=== PATIENT | male | born 1930 | race Caucasian/White ===

== ENCOUNTER 2017-04-10 23:01 | Inpatient (IN) | payer MEDICARE, OTHER ==
[~2017-04-10] VITALS: Ht 182.9 cm; Wt 81.8 kg
[2017-04-11 00:10] LABS: BASOPHILS % (AUTO) 0 % (0-1); EOSINOPHILS # (AUTO) 0.1 X10'3 (0-0.9); EOSINOPHILS % (AUTO) 0.7 % (0-6); HEMOGLOBIN 11.2 g/dl (14.0-17.9); LYMPHOCYTES # (AUTO) 0.7 X10'3 (1.1-4.8); LYMPHOCYTES % (AUTO) 3.5 % (21-51); MEAN CORPUSCULAR VOLUME 94.1 FL (78-98); MEAN PLATELET VOLUME 8.1 FL (7.4-10.4); MONOCYTES # (AUTO) 1.5 X10'3 (0-0.9); MONOCYTES % (AUTO) 7.3 % (2-12); NEUTROPHILS # (AUTO) 18.2 X10'3 (1.8-7.7); NEUTROPHILS % (AUTO) 88.5 % (42-75); PLATELET COUNT 327 X10'3 (140-440); RED BLOOD COUNT 3.51 X10'6 (4.70-6.10); WHITE BLOOD COUNT 20.5 X10'3 (4.5-11.0)
[2017-04-11 00:29] LABS: ALANINE AMINOTRANSFERASE 40 U/L (12-78); ALBUMIN 2.5 G/DL (3.4-5.0); ALBUMIN/GLOBULIN RATIO 0.6 (1.1-1.5); ALKALINE PHOSPHATASE 86 IU/L (46-116); ANION GAP 13 (8-16); ASPARTATE AMINO TRANSFERASE 30 U/L (10-37); BILIRUBIN,TOTAL 0.6 MG/DL (0.1-1.0); BLOOD UREA NITROGEN 22 MG/DL (7-18); BUN/CREATININE RATIO 19.3 (5.4-32.0); CALCIUM 8.5 MG/DL (8.5-10.1); CHLORIDE 97 MMOL/L (99-107); CREATININE 1.14 MG/DL (0.60-1.10); GLUCOSE 256 MG/DL (70-104); POTASSIUM 4.3 MMOL/L (3.5-5.1); SODIUM 131 MMOL/L (135-145); TOTAL CARBON DIOXIDE 21.2 MMOL/L (24-32); TOTAL PROTEIN 6.5 G/DL (6.4-8.2); eGFR 61 ML/MIN
[2017-04-11 00:31] LABS: TROPONIN I 1.51 NG/ML (0.0-0.05)
[2017-04-11] MEDS ORDERED: aspirin 81mg tab.chew PO ONE (00:35)
[2017-04-11] MEDS ORDERED: azithromycin/NS 500mg/250ml 250 ML IV ONE (00:35)
[2017-04-11] MEDS ORDERED: cefTRIAXone 1g/NS 100ml IVPB 100 ML IV ONE (00:35)
[2017-04-11] MEDS: normal saline 1000ml 1,000 ML IV SCH ×3 (00:39→20:52)
[2017-04-11] MEDS ORDERED: ondansetron/PF 4mg/2ml inj IV PRN (00:40)
[2017-04-11] MEDS ORDERED: diphenhydrAMINE 50 mg/ml inj IV PRN (00:40)
[2017-04-11] MEDS ORDERED: mag hydrox/Alum hydrox/simeth 30ml oral suspension PO PRN (00:40)
[2017-04-11] MEDS ORDERED: HYDROmorphone inj. 0.5 MG/0.5 ML DISP.SYRIN IV PRN ×2 (00:40)
[2017-04-11] MEDS ORDERED: acetaminophen 325mg tablet PO PRN ×2 (00:40)
[2017-04-11] MEDS ORDERED: diphenhydrAMINE 25mg capsule PO PRN (00:40)
[2017-04-11] MEDS ORDERED: HYDROcodone/acetaminophen 5mg/325mg tablet PO PRN (00:40)
[2017-04-11] MEDS ORDERED: acetaminophen 650mg rectal suppository RC PRN (00:40)
[2017-04-11] MEDS ORDERED: morphine 2 MG/ML inj. syringe IV PRN ×2 (00:40)
[2017-04-11] MEDS ORDERED: magnesium hydroxide 30ml (MOM) UD suspension PO PRN (00:40)
[2017-04-11] MEDS ORDERED: bisacodyl 10mg suppository rectal RC PRN (00:40)
[2017-04-11] MEDS ORDERED: metoclopramide 5 mg/ml inj IV PRN (00:40)
[2017-04-11] MEDS ORDERED: HYDROcodone/acetaminophen 10/325mg tab PO PRN (00:40)
[2017-04-11 01:36] LABS: INR 1.1 INR; PARTIAL THROMBOPLASTIN TIME 31 SECONDS (22-32); PROTHROMBIN TIME 11.2 SECONDS (9.0-12.0)
[2017-04-11 01:49] LABS: MAGNESIUM 1.7 MG/DL (1.5-2.4)
[2017-04-11 02:01] LABS: TOTAL CELLS COUNTED 100
[2017-04-11 02:02] LABS: PLATELET ESTIMATE NORMAL
[2017-04-11 02:03] LABS: TOXIC GRANULATION 1+
[2017-04-11 07:09] LABS: CLARITY,URINE CLOUDY (Clear); COLOR,URINE YELLOW (Yellow); GLUCOSE, URINE NEGATIVE (Neg); KETONES,URINE 15 mg/dl (Neg); LEUKOCYTE ESTERASE ,URINE NEGATIVE (Neg); NITRITES, URINE NEGATIVE (Neg); OCCULT BLOOD,URINE NEGATIVE (Neg); PH,URINE 5.5 (4.8-8.0); PROTEIN,URINE 30 mg/dl (Neg); UROBILINOGEN,URINE 0.2 E.U/dL (0.2-1.0)
[2017-04-11 07:17] LABS: UA COLLECTION TYPE CLN CATCH MIDSTREAM
[2017-04-11 07:18] LABS: BACTERIA,URINE FEW /HPF (Neg); RBC,URINE 0-2 /HPF (0-2); SQUAMOUS EPITHELIAL CELL,UR FEW /LPF (FEW); WBC,URINE 0-4 /HPF (0-4)
[2017-04-11 07:19] LABS: AMORPHOUS URATES 1+
[2017-04-11] MEDS: pantoprazole 40mg Tablet.DR PO SCH (07:30)
[2017-04-11] MEDS: cefTRIAXone 1g/NS 100ml IVPB 100 ML IV SCH ×2 (08:35→19:27)
[2017-04-11] MEDS ORDERED: ATOR20TA66 PO (08:51)
[2017-04-11] MEDS ORDERED: TRAZ150T78 PO (08:51)
[2017-04-11] MEDS ORDERED: METF500T PO (08:51)
[2017-04-11] MEDS ORDERED: GLIM4TAB79 PO (08:51)
[2017-04-11] MEDS ORDERED: LISI-600 PO (08:51)
[2017-04-11] MEDS ORDERED: FLO0.4C PO (08:51)
[2017-04-11 11:30] VITALS: BP_SYST 102; BP_SYST 138; BP_DIAS 61; BP_DIAS 97
[2017-04-11] MEDS: metoprolol tartrate 25mg tablet PO SCH ×2 (12:31→19:27)
[2017-04-11] MEDS: atorvastatin 20mg tablet PO SCH (12:31)
[2017-04-11] MEDS: enoxaparin 80mg/0.8ml syringe SUBCUT SCH ×2 (12:32→19:27)
[2017-04-11 12:56] LABS: CHOL/HDL RATIO 1.9 (0.00-4.99); CHOLESTEROL 58 MG/DL (0-200); HDL CHOLESTEROL 30 MG/DL (35-60); LDL CHOLESTEROL 26 MG/DL (50-100)
[2017-04-11 12:57] LABS: TRIGLYCERIDES 50 MG/DL (20-135)
[2017-04-11 15:00] VITALS: BP 103/61
[2017-04-11] MEDS: lactobacillus rhamnosus 10,000 MMU CELLS/CAPSULE PO SCH (17:05)
[2017-04-11 18:00] VITALS: BP 106/61
[2017-04-11] MEDS ORDERED: regadenoson 0.4mg/5ml syringe IV PRN (18:10)
[2017-04-11] MEDS ORDERED: MESSAGE TO PHARMACY PO ONE (18:10)
[2017-04-11] MEDS ORDERED: insulin Lispro (HumaLOG) vial - multi-dose SQ SCH (18:10)
[2017-04-11] MEDS ORDERED: dextrose 50%-water 50ml dispensing syringe IV PRN ×2 (18:10)
[2017-04-11] MEDS ORDERED: dextrose ORAL solution 15 GM/59 ML bottle PO PRN ×2 (18:10)
[2017-04-11] MEDS ORDERED: glucagon, human recombinant 1mg kit SUBCUT PRN (18:10)
[2017-04-11] MEDS: traZODone 150mg tablet PO SCH (19:27)
[2017-04-11 19:47] LABS: HEMOGLOBIN A1C 7.9 % (4.5-6.2)
[2017-04-11] MEDS: azithromycin 250mg tablet PO SCH (20:52)
[2017-04-11] MEDS: tamsulosin 0.4mg capsule PO SCH (20:52)
[2017-04-11] MEDS: insulin glargine (Lantus) pen - multi-dose SQ SCH (20:54)
[2017-04-11] MEDS ORDERED: insulin glargine (Lantus) pen - multi-dose SQ ONE (21:50)
[2017-04-11 21:56] VITALS: BP 103/65
[2017-04-11] MEDS: temazepam 15mg capsule PO PRN ×2 (22:00→22:59)
[2017-04-12] VITALS (14 sets, daily range): BP systolic 100–126; BP diastolic 46–70
[2017-04-12] MEDS: normal saline 1000ml 1,000 ML IV SCH (04:23)
[2017-04-12 06:16] LABS: BASOPHILS % (AUTO) 0.3 % (0-1); EOSINOPHILS # (AUTO) 0.3 X10'3 (0-0.9); EOSINOPHILS % (AUTO) 2.6 % (0-6); HEMATOCRIT 32.6 % (42.0-52.0); HEMOGLOBIN 11.2 g/dl (14.0-17.9); LYMPHOCYTES # (AUTO) 1.7 X10'3 (1.1-4.8); LYMPHOCYTES % (AUTO) 13.4 % (21-51); MEAN CORPUSCULAR HEMOGLOBIN 32.1 PG (27.0-31.0); MEAN CORPUSCULAR HGB CONC 34.5 % (33.0-36.5); MEAN CORPUSCULAR VOLUME 92.9 FL (78-98); MEAN PLATELET VOLUME 8.7 FL (7.4-10.4); MONOCYTES # (AUTO) 1.3 X10'3 (0-0.9); MONOCYTES % (AUTO) 10.2 % (2-12); NEUTROPHILS # (AUTO) 9.3 X10'3 (1.8-7.7); NEUTROPHILS % (AUTO) 73.5 % (42-75); PLATELET COUNT 283 X10'3 (140-440); RED BLOOD COUNT 3.51 X10'6 (4.70-6.10); RED CELL DISTRIBUTION WIDTH 13.1 % (11.5-14.5); WHITE BLOOD COUNT 12.6 X10'3 (4.5-11.0)
[2017-04-12 07:00] LABS: ALANINE AMINOTRANSFERASE 44 U/L (12-78); ALBUMIN 2.3 G/DL (3.4-5.0); ALBUMIN/GLOBULIN RATIO 0.6 (1.1-1.5); ALKALINE PHOSPHATASE 75 IU/L (46-116); ANION GAP 14 (8-16); ASPARTATE AMINO TRANSFERASE 30 U/L (10-37); BILIRUBIN,TOTAL 0.3 MG/DL (0.1-1.0); BLOOD UREA NITROGEN 12 MG/DL (7-18); BUN/CREATININE RATIO 13.5 (5.4-32.0); CALCIUM 8.3 MG/DL (8.5-10.1); CHLORIDE 104 MMOL/L (99-107); CREATININE 0.89 MG/DL (0.60-1.10); GLUCOSE 88 MG/DL (70-104); SODIUM 139 MMOL/L (135-145); TOTAL CARBON DIOXIDE 21.5 MMOL/L (24-32); TOTAL PROTEIN 6.2 G/DL (6.4-8.2); eGFR 81 ML/MIN
[2017-04-12] MEDS ORDERED: metoprolol tartrate 1mg/ml inj IV PRN (07:00)
[2017-04-12] MEDS ORDERED: nitroGLYCERIN 0.4mg SUBLingual tab SL PRN (07:00)
[2017-04-12] MEDS ORDERED: aminophylline 250mg/10ml inj. IV PRN (07:00)
[2017-04-12] MEDS: cefTRIAXone 1g/NS 100ml IVPB 100 ML IV SCH ×2 (08:13→19:47)
[2017-04-12] MEDS: pantoprazole 40mg Tablet.DR PO SCH (08:13)
[2017-04-12] MEDS: lactobacillus rhamnosus 10,000 MMU CELLS/CAPSULE PO SCH ×2 (08:13→17:51)
[2017-04-12] MEDS: atorvastatin 20mg tablet PO SCH (08:13)
[2017-04-12] MEDS: aspirin 81mg tab.chew PO SCH (08:13)
[2017-04-12] MEDS: enoxaparin 80mg/0.8ml syringe SUBCUT SCH ×2 (08:14→19:52)
[2017-04-12] MEDS ORDERED: ipratropium/albuterol 3ml nebule NEB PRN (09:05)
[2017-04-12] MEDS ORDERED: aminophylline inj. 0 ML IV ONE (09:37)
[2017-04-12] MEDS ORDERED: regadenoson 0.4mg/5ml syringe IV ONE (09:37)
[2017-04-12] MEDS ORDERED: TETanus/Pertussis (Acell)/Diphther VAC/PF (Tdap-Adult) 0.5ml syringe IMVAC ONE (12:45)
[2017-04-12] MEDS: lisinopril 10 MG tablet PO SCH (13:04)
[2017-04-12] MEDS: metoprolol tartrate 25mg tablet PO SCH ×2 (13:04→19:50)
[2017-04-12] MEDS: traZODone 150mg tablet PO SCH (19:51)
[2017-04-12] MEDS: azithromycin 250mg tablet PO SCH (20:11)
[2017-04-12] MEDS: tamsulosin 0.4mg capsule PO SCH (20:11)
[2017-04-12] MEDS: temazepam 15mg capsule PO PRN (20:11)
[2017-04-12] MEDS: insulin glargine (Lantus) pen - multi-dose SQ SCH (20:29)
[2017-04-13] MEDS: normal saline 1000ml 1,000 ML IV SCH ×2 (00:16→04:55)
[2017-04-13 02:00] VITALS: BP 131/58
[2017-04-13 06:00] VITALS: BP 140/73
[2017-04-13 06:29] LABS: BASOPHILS # (AUTO) 0.1 X10'3 (0-0.2); BASOPHILS % (AUTO) 0.8 % (0-1); EOSINOPHILS # (AUTO) 0.3 X10'3 (0-0.9); EOSINOPHILS % (AUTO) 3.2 % (0-6); HEMOGLOBIN 11.4 g/dl (14.0-17.9); LYMPHOCYTES # (AUTO) 1.4 X10'3 (1.1-4.8); LYMPHOCYTES % (AUTO) 13.9 % (21-51); MEAN CORPUSCULAR HEMOGLOBIN 32.3 PG (27.0-31.0); MEAN CORPUSCULAR HGB CONC 34.7 % (33.0-36.5); MEAN CORPUSCULAR VOLUME 93.2 FL (78-98); MEAN PLATELET VOLUME 8.4 FL (7.4-10.4); MONOCYTES # (AUTO) 0.8 X10'3 (0-0.9); MONOCYTES % (AUTO) 7.9 % (2-12); NEUTROPHILS # (AUTO) 7.7 X10'3 (1.8-7.7); NEUTROPHILS % (AUTO) 74.2 % (42-75); PLATELET COUNT 330 X10'3 (140-440); RED BLOOD COUNT 3.54 X10'6 (4.70-6.10); RED CELL DISTRIBUTION WIDTH 13.4 % (11.5-14.5); WHITE BLOOD COUNT 10.4 X10'3 (4.5-11.0)
[2017-04-13 07:10] LABS: ALANINE AMINOTRANSFERASE 47 U/L (12-78); ALBUMIN 2.2 G/DL (3.4-5.0); ALBUMIN/GLOBULIN RATIO 0.6 (1.1-1.5); ALKALINE PHOSPHATASE 78 IU/L (46-116); ANION GAP 11 (8-16); ASPARTATE AMINO TRANSFERASE 29 U/L (10-37); BILIRUBIN,TOTAL 0.3 MG/DL (0.1-1.0); BLOOD UREA NITROGEN 8 MG/DL (7-18); CALCIUM 8.5 MG/DL (8.5-10.1); CHLORIDE 104 MMOL/L (99-107); GLUCOSE 113 MG/DL (70-104); MAGNESIUM 1.7 MG/DL (1.5-2.4); PHOSPHORUS 3.3 MG/DL (2.3-4.5); POTASSIUM 3.8 MMOL/L (3.5-5.1); SODIUM 139 MMOL/L (135-145); TOTAL CARBON DIOXIDE 24.4 MMOL/L (24-32); eGFR > 90 ML/MIN
[2017-04-13] MEDS: aspirin 81mg tab.chew PO SCH (08:43)
[2017-04-13] MEDS: cefTRIAXone 1g/NS 100ml IVPB 100 ML IV SCH (08:43)
[2017-04-13] MEDS: pantoprazole 40mg Tablet.DR PO SCH (08:43)
[2017-04-13] MEDS: atorvastatin 20mg tablet PO SCH (08:43)
[2017-04-13] MEDS: metoprolol tartrate 25mg tablet PO SCH (08:43)
[2017-04-13] MEDS: lisinopril 10 MG tablet PO SCH (08:43)
[2017-04-13] MEDS: enoxaparin 80mg/0.8ml syringe SUBCUT SCH (08:44)
[2017-04-13] MEDS: lactobacillus rhamnosus 10,000 MMU CELLS/CAPSULE PO SCH (08:44)
[2017-04-13] MEDS ORDERED: LEVO500T2 PO (10:09)
[2017-04-13 11:00] VITALS: BP 139/71
== END 2017-04-13 12:10 | disposition home or self-care (01) | DRG 280 ==
LOC: ER 23:02 → ED HOLD 04-11 00:39 → PCU 3S 04-11 11:27
PROVIDERS: ADMIT Family Medicine; ATTEND Internal Medicine
PROC: 4A02XM4 Measurement of Cardiac Total Activity, External Approach (ICD-10-PCS; principal; 2017-04-12)
PROC: 3E073KZ Introduction of Other Diagnostic Substance into Coronary Artery, Percutaneous Approach (ICD-10-PCS; 2017-04-12)
DX: I21.4 Non-ST elevation (NSTEMI) myocardial infarction (principal); J18.1 Lobar pneumonia, unspecified organism; E11.42 Type 2 diabetes mellitus with diabetic polyneuropathy; E11.65 Type 2 diabetes mellitus with hyperglycemia; E87.1 Hypo-osmolality and hyponatremia; W06.XXXA Fall from bed, initial encounter; E78.00 Pure hypercholesterolemia, unspecified; E78.5 Hyperlipidemia, unspecified; S80.219A Abrasion, unspecified knee, initial encounter; I10 Essential (primary) hypertension; J20.9 Acute bronchitis, unspecified; S50.319A Abrasion of unspecified elbow, initial encounter; Z60.2 Problems related to living alone; Z79.899 Other long term (current) drug therapy; Y93.89 Activity, other specified; Y92.098 Other place in other non-institutional residence as the place of occurrence of the external cause; Y99.8 Other external cause status
CPT/HCPCS: 36415; 71045; 78452; 80053; 80061; 81001; 82948; 83036; 83605; 83735; 83880; 84100; 84484; 85025; 85610; 85730; 87040; 87070; 90715; 93005; 93017; 94760; 96365; 99285; A6212; A6213; A9500; J0280; J0456; J0696; J1650; J1815; J7030